=== PATIENT | male | born 1955 | race Caucasian/White ===

== ENCOUNTER 2020-03-10 00:17 | Outpatient (CLI) | payer OTHER, SELFPAY ==
[2020-03-10 18:35] LABS: SARS-CoV-2 RNA PCR Negative
== END 2020-03-10 00:18 | disposition home or self-care (01) ==
LOC: ANHCOVIDDT 00:17
PROVIDERS: PCP Family Medicine; Visit Provider Internal Medicine Gastroenterology
DX: Z01.812 Encounter for preprocedural laboratory examination (principal); Z20.828 Contact with and (suspected) exposure to other viral communicable diseases
CPT/HCPCS: 87635; C9803; U0003

== ENCOUNTER 2020-03-13 00:56 | Day surgery (SDC) | payer OTHER, SELFPAY ==
[2020-03-02 14:15] VITALS: BMI 29.1
--- NOTE | 2020-03-13 07:15 | WPDANESEPPF ---
Anes - Initial Pre Proc Eval Procedure: Operation Date: 03/13/20 13:30 Proposed Procedures p Screening Colonoscopy - Valdemar Welch MD Date/Time: 03/13/20 07:15 Surgeon: Valdemar Welch MD Pre Op Diagnosis: neoplasm screening Patient Data Age: 64 Gender: M Height: 1.83 m Weight: 97.5 kg Allergies Allergy/AdvReac Type Severity Reaction Status Date / Time No Known Allergies Allergy Unknown Verified 01/12/20 09:50 Home Medications Medication Instructions Recorded Confirmed Type peg 3350-electrolytes 236 240 ml PO Q10M #4000 ml 03/02/20 Rx gram-22.74 gram-6.74 gram-5.86 gram solution Patient hx anesthesia problems: none Family hx anesthesia problems: none [facility] Past Medical History Medical History (Updated 03/13/20 @ 07:16 by Jt Ribera MD) Erectile dysfunction Overweight (BMI 25.0-29.9) Social History Social History Smoking status: Never smoker Alcohol intake: current Anes - Eval Final PreProcedure Day of Procedure 03/13/20 07:15 Patient weight: overweight Heart: regular rate and rhythm Lungs: clear to auscultation and normal air movement Airway: Mallampati scale class II Neurological: alert and oriented Last oral intake: >/= 8 hours ASA classification: II Emergent: no Anesthetic plan: proceed Anesthesia type and monitoring: general GIVS Informed Consent: The patient's anesthetic plan and its attendant risks and benefits were discussed with the patient/family/POA. Questions were solicited and answers provided to the satisfaction of the patient/family/POA.
[2020-03-13] MEDS: LACTATED RINGERS 1,000 ML 150 ML IV CONT (12:34)
[2020-03-13 12:35] VITALS: BP 115/72; PULSE 83; RESP 16; O2SAT 98; BMI 28.2
--- NOTE | 2020-03-13 13:09 | PM.HPGS ---
History of Present Illness History of Present Illness Consent: Risks, benefits, and alternatives have been discussed and questions answered. Patient agrees to proceed with procedure. Chief complaint: neoplasm screening Narrative: Danielito Saravia is a 64 year old male here for screening colonoscopy, last one about 10 years ago. Review of Systems Constitutional: Constitutional: Denies headache(s) and Denies weakness Eyes: Eyes: Denies blurry vision ENT: Reports Normal hearing present, Denies headache(s) and Denies neck pain Cardiovascular: Cardiovascular: Denies chest pain and Denies dyspnea Respiratory: Respiratory: Denies dyspnea Gastrointestinal: Gastrointestinal: Reports no additional gastrointestinal complaints Genitourinary: Genitourinary: Denies dysuria Musculoskeletal: Musculoskeletal: Denies neck pain Integumentary/Breasts: Skin/Breast: Denies dry skin Neurologic: Reports Normal hearing present, Denies headache(s) and Denies weakness Psychiatric: Psychiatric: Denies anxiety Endocrine: Endocrine: Denies change in body appearance Hematologic/Lymphatic: Hematologic/Lymphatic: Denies easy bleeding Allergic/Immunologic: Allergic/Immunologic: Denies urticaria PMFSH Past Medical History Medical History (Updated 03/13/20 @ 13:09 by Valdemar Welch MD) Colon cancer screening Erectile dysfunction Overweight (BMI 25.0-29.9) Social History Social History Smoking status: Never smoker Alcohol intake: current Meds Home Medications and Allergies Home Medications Medication Instructions Recorded Confirmed Type ferrous sulfate [Iron (ferrous 325 mg PO DAILY 03/13/20 03/13/20 History sulfate)] Allergies Allergy/AdvReac Type Severity Reaction Status Date / Time No Known Allergies Allergy Unknown Verified 03/13/20 12:24 Vital Signs Vital Signs - 24 hr 03/13/20 12:35 Pulse Rate 83 Respiratory Rate 16 Blood Pressure 115/72 Pulse Oximetry 98 Exam Const: General: comfortable and no acute distress HENMT: General nose exam: Normal nares present Eyes: General: appearance normal, both eyes and all related structures Neck: Neck: no JVD Resp: Auscultation: clear to auscultation bilaterally Cardio: Rate: regular rate Rhythm: regular rhythm GI: Inspection: non-distended GI Palp: Yes Soft to palpation Skin: General skin exam: normal color Neuro: General: gait normal Speech: normal speech Extrem: General: normal to inspection Psych: Mental Status: mental status grossly normal Assessment and Plan Assessment and plan (1) Colon cancer screening: Code(s): Z12.11 - Encounter for screening for malignant neoplasm of colon Status: Acute Assessment and Plan: will proceed with colonoscopy
[2020-03-13 13:32] VITALS: BP 95/60; PULSE 75; RESP 16; O2SAT 100
[2020-03-13 13:42] VITALS: BP 97/63; PULSE 73; RESP 17; O2SAT 98
[2020-03-13 13:48] VITALS: BP 95/58; PULSE 65; O2SAT 96
== END 2020-03-13 14:10 | disposition home or self-care (01) ==
PROVIDERS: PCP Family Medicine; Visit Provider Internal Medicine Gastroenterology
PROC: 0DJD8ZZ Inspection of Lower Intestinal Tract, Via Natural or Artificial Opening Endoscopic (ICD-10-PCS; CPT 45378; principal; 2020-03-13 13:30)
DX: Z12.11 Encounter for screening for malignant neoplasm of colon (principal); K64.8 Other hemorrhoids
CPT/HCPCS: 45378; J2704; J7120

== ENCOUNTER → 2022-10-31 11:25 | Outpatient (CLI) | payer MEDICARE, OTHER, SELFPAY ==
--- NOTE | ~2022-10-31 | XR_ITS ---
XR knee LT 3V DATE: 10/31/2022 12:09 INDICATION: Left knee pain TECHNIQUE: AP, lateral, sunrise views COMPARISON: None FINDINGS: There is superior pole patellar enthesopathy. There is mild periarticular spurring of the p atella. There is chondrocalcinosis at the medial and lateral compartments. Medial and lateral compartment amarilis nt space appears well preserved. No fracture or dislocation or joint effusion, periosteal reaction or bone destruction is detected. IMPRESSION: Mild patellofemoral osteophyte is Chondrocalcinosis of medial and lateral compartments Reviewed, dictated and finalized at location A.
--- NOTE | ~2022-10-31 | XR_ITS ---
XR hip LT 2V w AP pelvis DATE: 10/31/2022 12:09 INDICATION: Left hip pain TECHNIQUE: AP pelvis. AP and lateral views of left hip COMPARISON: None FINDINGS: There is mild bilateral hip osteoarthritis. No left hip fracture or dislocation, avascular necrosis or bone destruction. Normal alignment at the pubic symphysis and sacroiliac joints. No pelvic fracture or bone destruction is detected. IMPRESSION: Mild bilateral hip osteoarthritis Reviewed, dictated and finalized at location A.
== END ==
PROVIDERS: PCP Family Medicine; Visit Provider Physician Assistant Medical
DX: M25.562 Pain in left knee (principal); M25.762 Osteophyte, left knee; M11.262 Other chondrocalcinosis, left knee; M16.0 Bilateral primary osteoarthritis of hip
CPT/HCPCS: 73502; 73562

== ENCOUNTER 2025-03-30 11:15 | Outpatient (CLI) | payer MEDICARE, OTHER, SELFPAY ==
[2025-03-30 11:38] LABS: Hematocrit 36.0 % (42.0-52.0); Hemoglobin 11.1 g/dL (14.0-18.0); Immature Granulocyte Percent A 0.5 % (0-0.5); Immature Reticulocyte Fraction 20.3 % (3.0-15.9); Lymphocytes Absolute Auto 1.08 K/mm3 (0.9-3.2); Mean Corpuscular HGB Conc 30.8 g/dl (32-36); Mean Corpuscular Hemoglobin 27.8 pg (26-34); Mean Corpuscular Volume 90.0 fl (80-100); Nucleated Red Blood Cells Absolute Auto 0.000 K/mm3 (0.0-0.012); Nucleated Red Blood Cells Perc 0.0 % (0.0-0.2); Platelet Count Result 302 k/mm3 (150-375); Red Blood Count 4.00 M/mm3 (4.6-6.20); Reticulocyte Hemoglobin Conten 30.8 pg (28.2-36.6); Reticulocytes Absolute 0.06 10^6/uL (0.02-0.10); White Blood Count 7.7 K/mm3 (4.5-10.0)
[2025-03-30 13:58] LABS: Iron 36 ug/dL (49-181)
[2025-03-30 14:07] LABS: Percent Iron Saturation 15 % (20-50)
[2025-03-30 14:38] LABS: Thyroid Stimulating Hormone 2.030 uIU/mL (0.465-4.680)
[2025-03-30 14:40] LABS: Ferritin 83.50 ng/mL (11.1-264)
[2025-03-30 15:14] LABS: Vitamin B12 284.0 pg/mL (239-931)
[2025-03-31 14:08] LABS: ANA by IFA Rfx Titer/Pattern Negative (.)
[2025-03-31 16:08] LABS: Albumin 3.0 g/dL (2.9-4.4); Alpha-1-Globulin 0.4 g/dL (0.0-0.4); Alpha-2-Globulin 1.0 g/dL (0.4-1.0); Gamma Globulin 2.1 g/dL (0.4-1.8)
[2025-04-07 03:08] LABS: Free Testosterone (Direct) 4.1 pg/mL (6.6-18.1)
== END 2025-03-30 11:16 | disposition home or self-care (01) ==
LOC: ANHLAB 11:17
PROVIDERS: PCP Family Medicine; Visit Provider Internal Medicine Hematology & Oncology
DX: D64.9 Anemia, unspecified (principal)
CPT/HCPCS: 36415; 82607; 82728; 82746; 83540; 83550; 83615; 84155; 84165; 84402; 84403; 84443; 85025; 85046; 86038

== ENCOUNTER 2025-05-18 10:09 | Outpatient (CLI) | payer MEDICARE, OTHER, SELFPAY ==
[2025-05-18 10:28] LABS: Hematocrit 37.8 % (42.0-52.0); Hemoglobin 11.4 g/dL (14.0-18.0); Immature Granulocyte Percent A 0.4 % (0-0.5); Lymphocytes Absolute Auto 1.31 K/mm3 (0.9-3.2); Mean Corpuscular HGB Conc 30.2 g/dl (32-36); Mean Corpuscular Hemoglobin 27.2 pg (26-34); Mean Corpuscular Volume 90.2 fl (80-100); Nucleated Red Blood Cells Absolute Auto 0.000 K/mm3 (0.0-0.012); Nucleated Red Blood Cells Perc 0.0 % (0.0-0.2); Platelet Count Result 349 k/mm3 (150-375); Red Blood Count 4.19 M/mm3 (4.6-6.20); White Blood Count 8.3 K/mm3 (4.5-10.0)
[2025-05-18 11:49] LABS: Iron 36 ug/dL (49-181)
[2025-05-18 11:50] LABS: Alanine Aminotransferase 15 U/L (6-50); Albumin Level 4.0 g/dL (3.5-5.1); Alkaline Phosphatase 87 U/L (38-126); Anion Gap 8 mmol/L (4-12); Aspartate Amino Transferase 17 U/L (17-59); Bilirubin,Total 0.6 mg/dL (0.2-1.3); Blood Urea Nitrogen 21 mg/dL (9-20); Calcium 9.9 mg/dL (8.4-10.2); Carbon Dioxide 29 mmol/L (22-30); Chloride 104 mmol/L (98-107); Estimated Glomerular Filt Rate > 60; Glucose 144 mg/dL (65-110); Potassium 3.8 mmol/L (3.4-5.0); Sodium 141 mmol/L (137-145); Total Protein 8.6 g/dL (6.3-8.2)
[2025-05-18 12:07] LABS: Percent Iron Saturation 15 % (20-50)
--- OUTSIDE RECORDS SUMMARY | 2025-05-18 12:16 | XMS_ITS | Clinical Summary ---
Author Organization [facility] Address [address] [place] [address] Care Team Providers Care Digital Advisor Name Role Phone Dung Duggan MD Primary Care Provider [phone] Allergies No known active allergies Medications rosuvastatin (CRESTOR) 5 MG tablet 08/03/2024 Active Iron, Ferrous Sulfate, 325 (65 Fe) MG Tab 06/10/2024 Acti ve IBU 600 MG tablet 09/20/2024 Active omeprazole (PRILOSEC) 40 MG capsule Take 1 capsule (40 mg total) by mouth. 01/07/2024 Active Apoaequorin (PREVAGEN EXTRA STRENGTH) 20 MG Cap Take 1 capsule by mouth daily. Active Active Problems Problem Noted Date Diagnosed Date Benign prostatic hyperplasia with urinary obstru ction 11/08/2024 Benign prostatic hyperplasia 11/08/2024 Benign prostatic hyperplasia with lower urinary tract symptoms 11/08/2024 Elevated prostate specific antigen (PSA) 025 Exposure to potentially hazardous substance 10/26 Gastro-esophageal reflux dis ease with esophagitis, without bleeding 11/08/2024 Gastroesophageal reflux disease 11/08/2024 History of esophagitis 11/08/2024 Nocturia 11/08/2024 Syncope 09/28/2024 Coronary atherosclerosis due to calcified coronary lesion (CODE) 05/21/2024 Abnormal wellness exam 05/04/2024 Dizziness and giddiness 05/04/2024 Iron deficiency anemia 05/04/2024 Prediabetes 05/04/2024 History of squamous cell carcinoma of skin 04/11 Syncope and collapse Resolved Problems Problem Noted Date Diagnosed Date Resolved Date Encounter for other preprocedural examination 11/09/19 25 11/15/2024 Immunizations Immunization Administration Dates Next Due Arexvy Respiratory Syncytial Virus (RSV, adjuvanted) 0.5 mL, PF 04/01/2023 Flucelvax 6 Months+ (Prefill ed Syringe) 05/16/2020 Fluzone High Dose (IIV, triv alent, 0.5mL) 03/30/2024 H1N1 Injectable 2008 Influenza 08/20/2009 Hepatitis A (Havrix [address]U) 06/30/1999,1997 Hepatitis B (Generic: Adult) 07/02/2014,01/14/20 14,12/11/2013 Influenza (Generic) 04/21/2022,,05/01/2019,04/21,06/12/2013,05/17/2012,04/13/2011 ,05/12/2010,08/20/2009,05/14/2009,04/28,05/20/2007,07/11/2006, 5,05/28/2003,05/29/2002,05/30/2001,,07/01/1998 Influenza Adult (Generic) 05/21/2014 Toppr (AGUSTÍN & AGUSTÍN) COVID-19 AD26 VACCINE 0.5 ML IM SUSP 09/29/2020 MMR (MMRII) 09/26/2002 Measles 06/11/2020 Meningococcal (Menomune) 12/15/1999 PFIZER COVID-19 (12+) MRNA, LNP-S, PF, RONAL-SUCROSE, 30 MCG/0.3 ML (COMIRNATY) 04/29/2023 PFIZER COVID-19 (HOLT CAP), MRNA, LNP-S, PF, 30 MCG/0.3 ML RONAL-SUCROSE, IM 05/24/2021 PFIZER COVID-19 BIVALENT (12 +) mRNA, LNP-S, PF, 30 MCG/0.3 ML DOSE 06/05/2022 Pneumococcal (Prevnar 20) 06/05/2022 Polio Opv (Generic) 08/28/1989 Shingrix 08/10/2022, 2,08/08/2021,05/11 Td (TDVAX) 09/26/2002,02/22/1993 Tdap (Generic) 08/02/2012 Typhoid 10/01/2003 Typhoid (Typhim ) 10/03/2001 Typhoid Vaccine, Akd 08/28/1996 Typhoid Vi Polysaccharide Va cc 25 Mcg/0.5Ml Im Soln 10/01/2003,12/15/1999 Yellow Fever (YF- Vax) 12/26/1997 Family History Medical History Relation Comments Heart Disease Father No Known Problems Maternal Grandfather No Known Problems Maternal Grandmother Heart Attack Mother Heart Disease Mother No Known Problems Paternal Grandfather No Known Problems Paternal Grandmother Relation Status Comments Father Maternal Grandfather Maternal Grandmother Mother Paternal Grandfather Paternal Grandmother Social History Tobacco Use Types Packs/Day Years Used Date Smoking Tobacco: Never Passive Smoke Exposure: Never Smokeless Tobacco: Never Tobacco Cessation:Counseling Given: Not Answered Alcohol Use Standard Drinks/Week Comments Yes 0 (1 standard drink = 0.6 oz pur e alcohol) AUDIT-C Answer Date Recorded Q1: How often do you have a drink containing alc ohol? Monthly or less 10/11/2020 Q2: How many drinks containi ng alcohol do you have on a typical day when you are drinking? 1 or 2 10/11/2020 Q3: How often do you have si x or more drinks on one occasion? Never 10/11/2020 PHQ-2 Answer Date Recorded PHQ-2 Score - If the patient scores above 3, please move on to questions 3-9 0 10/11/2020 Sex and Gender Information Value Date Recorded Sex Assigned at Male 10/11/2020 3:24 PM CDT Legal Sex Male 12:44 PM PRESCHOOL PROGRAM DIRECTOR Gender Identity Male 10/11/2020 3:24 PM CDT Sexual Orientation Straight 10/11/2020 3: 24 PM CDT Last Filed Vital Signs Vital Sign Reading Time Taken Comments Blood Pressure 134/82 11/08/2024 2:10 PM CDT Pulse 82 11/08/2024 2:10 PM CDT Temperature 36.6 C (97.8 F) 09/23/2024 9:15 AM PRESCHOOL PROGRAM DIRECTOR Respiratory Rate 12 09/23/2024 9:15 AM PRESCHOOL PROGRAM DIRECTOR Oxygen Saturation 96% 11/08/2024 2:10 PM CDT Inhaled Oxygen Concentration - - Weight 95.7 kg (211 lb) 11/08/2024 2:10 PM CDT Height 181.6 cm (5' 11.5) 11/08/2024 2:10 PM CD T Body Mass Index 29.02 11/08/2024 2:10 PM CDT Plan of Treatment Upcoming Encounters Date Type Department Care Team (Late st Contact Info) Description 05/23/2025 9:30 AM CDT Office Visit [facility] [facility] [place] [address] Beto Wright MD [address] [facility] [address] [place] [address] Beverly Watts, CHAIR SPRING ASSEMBLER [address] [facility] [place] [address] Health Maintenance Due Date Last Done Comments ASCVD LDL 1955 Colorectal Cancer Screening Colonoscopy (10 Years) 1955 Hepatitis C 10/22/1973 Annual Medicare Wellness Visit 10/22/2020 DTaP, Tdap and Td Vaccines (2 - Td or Tdap) 08/02/2022 08/02/2012, 09/26/2002, 02/22/1993 COVID-19 Vaccine ( - season) 2025 04/29/2023, 06/05/2022, 05/24/2021, Additional history exists Influenza Adult (#1) 2025 03/30/2024, 04/21/2022, 03/28/2022, Additional history exists Hepatitis A Vaccines Aged Out 06/30/1999, 02/11/19 98 No longer eligible based on patient's age to complete this topic Meningococcal Vaccine Aged Out 12/15/1999 No sarbjit thor eligible based on patient's age to complete this topic Pneumococcal Vaccine: 50+ Years Completed 06/05/2022 Zoster Vaccines Completed 08/10/2022, 110 03/2022, 08/08/2021, Additional history exists RSV Immunization or 60+ Years Completed 04/01/2023 Meningococcal B Vaccine Aged Out No l onger eligible based on patient's age to complete this topic RSV Immunizations Under 20 Months Aged Out No longer eligible based on patient's age to complete this topic Insurance [facility] UHC MEDICARE Care Teams Digital Advisor Relationship Specialty Start Date End Date Dung Duggan MD [address] [place], [place] [id number] PCP - General FAMILY PRACTICE 12/02/24
--- OUTSIDE RECORDS SUMMARY | 2025-05-18 12:16 | XMS_ITS | Clinical Summary ---
Author Organization [facility] Address [address] [place] [address] Care Team Providers Care Scrap Hooker Name Role Phone Dung Duggan MD Primary Care Provider [phone] Source Comments [facility],non-owned Affiliates and Associated Physician Practices is amultiple site organization consisting of ambulatory clinics and hospital sitesin [place], [place], [place] and [place]. This disclosure is being madepursuant to the Care Everywhere program and may not contain all information available regarding this patient. Last updated 18.[facility] Allergies No known active allergies Medications * Be aware that medications may not be up to date on this document. Alwaysverify current medications with the patient. tamsulosin (FLOMAX) 0.4 MG capsule Take 1 (one) capsule by mouth once daily 12/11/2020 Active tadalafil (Cialis) 5 MG tablet Take 1 (one) tablet by mouth once daily 01/18/2023 Active finasteride (Proscar) 5 MG tablet 05/12/2023 Active ferrous sulfate 325 (65 FE) MG tablet 04/07/2023 Active rosuvastatin (Crestor) 5 MG tablet Take 1 (one) tablet by mouth at bedtime 05/21/2024 Active omeprazole (PriLOSEC) 40 MG capsule Take 1 (one) capsule by mouth every 2 days 01/07/2024 Active Active Problems Problem Noted Date Diagnosed Date Multiple benign melanocytic nevi of upper and lower extremities and trunk 07/02/2022 Solar lentiginosis 07/02/2022 Other specified follicular disorders 07/15/2017 Neoplasm of uncertain behavior of skin 2 Inflamed seborrheic keratosis 04/11/2011 Scar conditions and fibrosis of skin 04/11/2011 History of SCC (squamous cell carcinoma) of skin 04/11/2011 Actinic keratosis 04/11/2011 Nevus, non-neoplastic 04/11/2011 Ritchie angioma 04/11/2011 Scar 04/11/2011 Encounters Date Type Department Care Team Description 02/22/2025 Travel from Last 3 Months Immunizations Immunization Administration Dates Next Due INFLUENZA VACCINE, TRIV. (AF LURIA, FLUZONE TRIVALENT; 6MO+) (IIV3) 06/12/2013,05/17/2012 FLU VACCINE QUAD IIV4 SPLIT 0.25 ML IM 05/21/2014 FLU VACCINE TRI IIV3 SPLIT P F IM (FLUVIRIN) 04/13/2011 HEP B VACCINE, ADULT 3 DOSE 07/02/2014, 4,12/11/2013 INFLUENZA VACCINE 04/21/2022, 9,04/21/2018,2009,08/20/2009,05/18/2008,05/20/2007,1 09/11/2005,06/02/2005,05/28/2003 INFLUENZA VACCINE, CELL CULT URE, QUADR. (FLUCELVAX QUADRIVALENT; 6MO+) (CCIIV4) 05/16/2020 MEASLES 06/11/2020 TDAP (7yrs+) 08/02/2012 TYPHOID VACCINE H-P 10/01/2003 Family History Medical History Relation Name Comments Allergy (Severe) Neg Hx CVA Neg Hx Cancer Neg Hx Cancer - Breast Neg Hx Cancer - Skin, Melanoma Neg Hx Cancer - Skin, Non Melanoma Neg Hx Eczema Neg Hx Hemophilia Neg Hx Psoriasis Neg Hx Rashes/Skin Problems Neg Hx Social History Tobacco Use Types Packs/Day Years Used Date Smoking Tobacco: Never Smokeless Tobacco: Never Tobacco Cessation:Counseling Given: Not Answered Alcohol Use Standard Drinks/Week Comments No 0 (1 standard drink = 0.6 oz pur e alcohol) Sex and Gender Information Value Date Recorded Sex Assigned at Not on file Legal Sex 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 Gender Identity Not on file Sexual Orientation Not on file Plan of Treatment Upcoming Encounters Date Type Department Care Team (Late st Contact Info) Description 10/04/2025 1:20 PM CDT Office Visit [facility] [address] [facility] [facility] [place] [phone] Dianne Faye MD [address] [facility] [place] [address] Health Maintenance Due Date Last Done Comments COLOGUARD (AGES 45-75) - COLON CA SCREENING 1955 COLON MONITORING 1955 COLONOSCOPY - COLON CA SCREENING 1955 CT COLONOGRAPHY - COLON CA SCREENING 1955 Colorectal Cancer Screening 1955 FIT - COLON CA SCREENING 1955 FLEX SIG - COLON CA SCREENING 1955 HEPATITIS C SCREENING 10/18/1973 PNEUMOCOCCAL VACCINE 50+ (1 of 1 - PCV) 10/22/2005 ZOSTER VACCINE (1 of 2) 10/22/2005 DTAP/TDAP/TD VACCINES (2 - Td or Tdap) 08/02/2022 08/02/2012 DEPRESSION SCREENING 07/28/2024 MEDICARE AWV CALENDAR YEAR 2024 COVID-19 VACCINE ( - 2024- season) 2025 06/05/2022, 05/24/2021, 09/29/2020 INFLUENZA VACCINE (#1) 2025 , 04/21/2022, 03/28/2022, Additional history exists Respiratory Syncytial Virus (RSV) Vaccine Pt: or over 60 yrs (1 - 1-dose 75+ series) 10/22/2030 HEPATITIS B VACCINE Completed 07/02/2014, 01/13/2014, 12/11/2013 HIB VACCINE Aged Out No longer eligi ble based on patient's age to complete this topic HPV VACCINE Aged Out No longer eligi ble based on patient's age to complete this topic MENINGOCOCCAL (Group B) VACCINE SHARED DECISION-MAKING Aged Out No longer eligible based on patient's age to complete this topic MENINGOCOCCAL GROUPS A/C/Y/W VACCINE Aged Out No longer eligible based on patient's age to complete this topic Insurance MEDICARE UHC MANAGED MEDICARE ADV Care Teams Scrap Hooker Relationship Specialty Start Date End Date Dung Duggan MD [address] [place] [address] PCP - General 04/02/11
--- OUTSIDE RECORDS SUMMARY | 2025-05-18 12:16 | XMS_ITS | Clinical Summary ---
Author Organization [facility] Address [address] [place] [address] Care Team Providers Care Supervisor Engine Repair Name Role Phone Dung Duggan MD Primary Care Provider Allergies No known active allergies Medications ferrous sulfate 325 mg (65 mg iron) tablet Take 325 mg by mouth daily. 06/10/2024 Active omeprazole (PriLOSEC) 40 mg Capsule, Delayed Release(E.C.) Take 40 mg by mouth daily. 01/07/2024 Active rosuvastatin (CRESTOR) 5 mg tablet Take 5 mg by mouth daily. 08/03/2024 Active tadalafil (CIALIS) 5 mg tablet Take 5 mg by mouth. 02/16/2025 Active Active Problems Problem Noted Date Diagnosed Date Chronic anemia 03/30/2025 Encounters Date Type Department Care Team Description 05/13/2025 Abstract [facility] [address] [place] [phone] Bolivar Sánchez MD 04/19/2025 4:30 PM CDT Telephone Check Up [facility] [place] [address] [place] [phone] Bolivar Sánchez MD MGUS (monoclonal gammopathy of unknown significance) (Primary Dx); Chronic anemia 04/07/2025 Orders Only [facility] [place] [address] [place] [address] Bolivar Sánchez MD 04/05/2025 External Device Data STL ABSTRACTION Provider, Abstract 04/05/2025 External Device Data STL ABSTRACTION Provider, Abstract 04/05/2025 External Device Data STL ABSTRACTION Provider, Abstract 04/05/2025 Abstract [facility] [place] [address] [place] [phone] Bolivar Sánchez MD 04/01/2025 Orders Only [facility] - [place] [address] [place] [phone] Bolivar Sánchez MD 03/30/2025 10:30 AM CDT Office Visit [facility] - [place] [address] [place] [phone] Migdalia Garvin MD Chronic anemia (Primary Dx) 03/30/2025 Orders Only [facility] - [place] [address] [place] [phone] Bolivar Sánchez MD from Last 3 Months Family History Medical History Relation Name Comments Colon Cancer Brother 1 Prostate Cancer Brother 1 No Known Problems Brother 2 Heart Disease Father Heart Disease Mother Breast Cancer Sister Lymphoma Sister Relation Name Status Comments Brother 1 Brother 2 Alive Father Mother Sister Alive Social History Tobacco Use Types Packs/Day Years Used Date Smoking Tobacco: Never Smokeless Tobacco: Never Tobacco Cessation:Counseling Given: Not Answered Alcohol Use Standard Drinks/Week Comments Yes 0 (1 standard drink = 0.6 oz pur e alcohol) Occasionally Sex and Gender Information Value Date Recorded Sex Assigned at Not on file Legal Sex Male 10:13 PM CDT Gender Identity Not on file Sexual Orientation Not on file Last Filed Vital Signs Vital Sign Reading Time Taken Comments Blood Pressure 120/67 03/30/2025 10:19 AM CDT Pulse 83 03/30/2025 10:19 AM CDT Temperature 36.2 C (97.2 F) 03/30/2025 10:19 AM CDT Respiratory Rate 15 03/30/2025 10:19 AM CDT Oxygen Saturation 99% 03/30/2025 10:19 AM CDT Inhaled Oxygen Concentration - - Weight 94.4 kg (208 lb 3.2 oz) 03/30/2025 10:19 AM CDT Height 182.9 cm (6') 03/30/2025 10:19 AM CDT Body Mass Index 28.24 03/30/2025 10:19 AM CDT Plan of Treatment Upcoming Encounters Date Type Department Care Team (Late st Contact Info) Description 06/03/2025 10:45 AM PATCHER Office Visit [facility] - [place] [address] [facility] [address] [place] [address] Bolivar Sánchez MD [address] [facility] [address] [place] [address] Health Maintenance Due Date Last Done Comments Pre-Diabetes and Diabetes Screening 1955 COLORECTAL SCREENING 10/22/2000 Colorectal Cancer Screening 10/22/2000 FIT-DNA Q 3 years 10/22/2000 FIT/FOBT Q 1 year 10/22/2000 Flex Sig/CT Colonography Q 5 years 10/22/2000 DTAP/TDAP/TD VACCINES (2 - T d or Tdap) 08/02/2022 08/02/2012 Medicare Advantage ([place]) Preventative Visit/Annual Wellness Visit 07/28/2024 INFLUENZA VACCINE (#1) 2025 4, 04/01/2023, 05/16/2020, Additional history exists COVID-19 Vaccine (5 - 2024-2 6 season) 2025 04/29/2023, 06/05/2022, 05/24/2021, Additional history exists RSV VACCINE (60+ or ) (1 - 1-dose 75+ series) 10/22/2030 PNEUMOCOCCAL VACCINE 50+ YEARS Completed 06/05/2022 ZOSTER VACCINE Completed 08/10/2022, 1103/2022, 08/08/2021, Additional history exists Procedures Procedure Name Priority Date/Time Associated Diagnosis Comments IRON, TIBC, AND PERCENT SATURATION Routine 03/30/2025 3:50 PM CDT PROTEIN ELECTROPHORESIS, CSF Routine 03/30/2025 12:20 PM CDT HANNA PANEL Routine 03/30/2025 10:35 AM CDT TESTOSTERONE FREE AND TOTAL Routine 03/30/2025 8:56 AM CDT from Last 3 Months Results * IRON, TIBC, AND PERCENT SATURATION (03/30/2025 3:50 PM CDT) Blood us Bolivar Sánchez MD CHEMISTRY ORDERABLES Final Resu lt * PROTEIN ELECTROPHORESIS, CSF (03/30/2025 12:20 PM CDT) Cerebrospinal fluid CEREBROSPINAL FLUID / Unknown us Bolivar Sánchez MD BODY FLUIDS AND STOOLS Final Re sult * HANNA PANEL (03/30/2025 10:35 AM CDT) Blood us Bolivar Sánchez MD CHEMISTRY ORDERABLES Final Resu lt * TESTOSTERONE FREE AND TOTAL (03/30/2025 8:56 AM CDT) Blood us Bolivar Sánchez MD CHEMISTRY ORDERABLES Final Resu lt from Last 3 Months Insurance [employer] Care Teams Supervisor Engine Repair Relationship Specialty Start Date End Date Dung Duggan MD [address] [place] [address] PCP - General Family Practice 03/30/25
[2025-05-18 12:24] LABS: Immunoglobulin A 46 mg/dL (70-400); Immunoglobulin G 1028 mg/dL (700-1600)
[2025-05-18 12:30] LABS: Ferritin 89.20 ng/mL (11.1-264)
[2025-05-18 12:45] LABS: Vitamin B12 826.0 pg/mL (239-931)
[2025-05-18 17:22] LABS: Immunoglobulin M 1996 mg/dL (40-230)
[2025-05-19 14:08] LABS: Albumin 3.1 g/dL (2.9-4.4); Alpha-1-Globulin 0.4 g/dL (0.0-0.4); Alpha-2-Globulin 1.1 g/dL (0.4-1.0); Gamma Globulin 2.4 g/dL (0.4-1.8)
[2025-05-19 14:08] LABS: Free Lambda Lt Chains, Serum 42.3 mg/L (5.7-26.3); Kappa/Lambda Ratio, Serum 4.45 (0.26-1.65)
== END 2025-05-18 10:10 | disposition home or self-care (01) ==
LOC: ANHLAB 10:12
PROVIDERS: PCP Family Medicine; Visit Provider Internal Medicine Hematology & Oncology
DX: D64.9 Anemia, unspecified (principal); D47.2 Monoclonal gammopathy
CPT/HCPCS: 36415; 80053; 82607; 82728; 82784; 83521; 83540; 83550; 84155; 84165; 85025

== ENCOUNTER 2025-05-18 10:34 | Outpatient (CLI) | payer MEDICARE, OTHER, SELFPAY ==
--- NOTE | ~2025-05-18 | XR_ITS ---
EXAMINATION: BONE SURVEY/METASTATIC SURVEY DATE: 05/19/2025 10:38 CDT INDICATION: Monoclonal gammopathy of unknown significance TECHNIQUE: A skeletal survey was performed including AP views of the chest, abdomen and pelvis; AP and lateral/lateral swimmers views of the cervical, thoracic and lumbar spine; lateral view of the skull, and AP and lateral views of the appendicular skeleton excluding the hands and feet. COMPARISON: Chest radiograph dated 06/15/2018 FINDINGS: No suspicious lytic or blastic bone lesions in the axial or appendicular skeleton. Chondrocalcinosis at the bilateral knees. Moderate osteoarthritis at the bilateral shoulders. Otherwise mild scattered polyarticular osteoarthritis in the upper and lower extremities. Mild thoracic dextrocurvature. Moderate to severe cervical and mild thoracic and lumbar spondylosis. Unchanged chronic mild likely physiologic anterior wedging at T11 and T12. 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 Lungs are clear with no focal airspace opacities, pulmonary edema, pleural effusion or pneumothorax. Cardiomediastinal silhouette is normal. Normal bowel gas pattern. A few phleboliths in the pelvis. IMPRESSION: 1. Scattered degenerative skeletal changes and L5 spondylolysis. No suspicious lytic or blastic bone lesions. Reviewed, dictated and finalized at location A.
== END 2025-05-18 10:35 | disposition home or self-care (01) ==
PROVIDERS: PCP Family Medicine; Visit Provider Internal Medicine Hematology & Oncology
DX: D47.2 Monoclonal gammopathy (principal); M43.06 Spondylolysis, lumbar region
CPT/HCPCS: 77075

== ENCOUNTER 2025-06-03 11:32 | Outpatient (CLI) | payer MEDICARE, OTHER, SELFPAY ==
--- NOTE | ~2025-06-03 | CT_ITS ---
EXAMINATION: CT chest abdomen pelvis w con DATE: 06/03/2025 12:12 INDICATION: MGUS TECHNIQUE: Computed tomography (CT) of the chest, abdomen, and pelvis was performed with 100 mL Omnipaque-350 intravenous contrast. Automated exposure control and iterative reconstruction technique were employed. The dose-length product was 1086.27 mGy-cm. COMPARISON: None FINDINGS: CHEST CT: There are old healed fracture deformities at the anterolateral left fourth- seventh ribs. 3.1 x 1.7 cm triangular pleural-based nodule immediately adjacent to the seventh rib fracture which has healed with mild displacement likely related to secondary pleural-parenchymal scarring. Small calcified nodule within this region of scarring which along with left hilar lymph nodes consistent with old granulomatous disease. No pneumonia, trauma or other pulmonary infiltrates. No pleural effusion. Heart size is normal. Atherosclerotic coronary artery calcifications. No pericardial effusion. Thoracic aorta is normal in caliber with no dissection. No pathologically enlarged thoracic lymphadenopathy. Mild thoracic dextro scoliosis with mild spondylosis. No suspicious lytic or blastic bone lesions. ABDOMEN/PELVIS CT: Liver, gallbladder, spleen, pancreas, bilateral adrenal glands and kidneys are normal. Bladder is normal. Prostatomegaly measuring 5.3 x 4.2 cm. Bowels including the appendix are normal. There is upper and lower abdominal retroperitoneal lymphadenopathy. For reference, the largest is a 4.1 x 2.6 x 1.6 cm left para-aortic lymph node. There are also a mildly prominent but still normal-sized right periportal lymph node measuring 9-10 mm in maximal short axis diameter and portacaval lymph node measuring 11 mm in maximal short axis diameter. 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 Mild chronic appearing likely physiologic anterior wedging at T11 and T12. Mild bilateral sacroiliitis. Elongated sclerotic bone island at the right posterior iliac spine. No suspicious lytic or blastic bone lesions. IMPRESSION: 1. No suspicious lytic or blastic bone lesions. 2. Retroperitoneal lymphadenopathy which could be reactive, metastatic or due to lymphoma. Correlate with any prior outside imaging if available. Alternatively could consider percutaneous CT-guided biopsy as clinically indicated. 3. 3.1 x 1.7 cm perihilar pleural-based nodule at the lateral and lingula which lies medially along side a old healed rib fracture and would favor secondary pleural parenchymal scarring. Would again recommend correlation with any prior outside imaging if available. Otherwise would consider 3-6 month follow-up chest CT. 4. Prostatomegaly. Reviewed, dictated and finalized at location A. [facility] IMPRESSION: 1. No suspicious lytic or blastic bone lesions. 2. Retroperitoneal lymphadenopathy which could be reactive, metastatic or due t o lymphoma. Correlate with any prior outside imaging if available. Alternativel y could consider percutaneous CT-guided biopsy as clinically indicated. 3. 3.1 x 1.7 cm perihilar pleural-based nodule at the lateral and lingula which lies medially along side a old healed rib fracture and would favor secondary p leural parenchymal scarring. Would again recommend correlation with any prior o utside imaging if available. Otherwise would consider 3-6 month follow-up chest CT. 4. Prostatomegaly.
--- OUTSIDE RECORDS SUMMARY | 2025-06-03 11:00 | XMS_ITS | Encounter Summary ---
Author Organization [facility] OSEI [facility] Address [address] [place] [address] Care Team Providers Care Calender Operator Helper Name Role Phone Dung Duggan MD Primary Care Provider [phone] Reason for Referral * CT Scan (Urgent) - Open Specialty Diagnoses / Procedures Referred By Contac t Referred To Contact Diagnoses MGUS (monoclonal gammopathy of unknown significance) Procedures CT CHEST ABDOMEN PELVIS W CONT Bolivar Sánchez MD [address] [place] [phone] Phone: tel: fax: [place] [phone] Referral ID Status Reason Start Date Expiration Date V isits Requested Visits Authorized [id number] Open STL CTS 06/03/2025 07/04/2026 1 1 DIPPER Reason for Visit * Reason Comments Follow Up Encounter Details Date Type Department Care Team (Late st Contact Info) Description 06/03/2025 11:00 AM LAST DIPPER Office Visit [facility] Oncology and Hematology [facility] [address] [place] [address] Bolivar Sánchez MD [address] [place] [address] MGUS (monoclonal gammopathy of unknown significance) (Primary Dx) Social History Tobacco Use Types Packs/Day Years [...] on file Sexual Orientation Not on file documented as of this encounter Last Filed Vital Signs Vital Sign Reading Time Taken Comments Blood Pressure 121/73 06/03/2025 10:33 AM LAST DIPPER Pulse 88 06/03/2025 10:33 AM LAST DIPPER Temperature 36.6 C (97.8 F) 06/03/2025 10:33 AM LAST DIPPER Respiratory Rate 15 06/03/2025 10:3 3 AM LAST DIPPER Oxygen Saturation 95% 06/03/2025 10: 33 AM LAST DIPPER Inhaled Oxygen Concentration - - Weight 93.8 kg (206 lb 12.8 oz) 025 10:33 AM LAST DIPPER Height - - Body Mass Index 28.05 03/30/2025 10:19 AM CDT documented in this encounter Progress Notes * Bolivar Sánchez MD - 06/03/2025 11:17 AM CST HEMATOLOGY / ONCOLOGY PROGRESS NOTE Patient Identification: Name: Danielito Saravia Age: 69 y.o. Sex: male : 1955 DIAGNOSIS Chronic anemia MGUS CURRENT TREATMENT Iron 325 mg twice a day with vitamin B12 1 mg daily TREATMENT HISTORY SUBJECTIVE Patient came to the office for follow-up visit. He denies any bone pain and neuropathy. Denies any chest pain and shortness of breath. Weight and appetite stable. No bleeding and bruising. No other new complaints. Review of system Constitutional: Patient did not mention fevers, sweats, weight and appetite stable, denies any tiredness and fatigue HEENT: Patient did not mention sinus congestion, hearing or vision problems Respiratory: Patient did not mention cough, dyspnea, wheeze Cardiovascular: Patient did not mention chest pain, exertional chest pressure/discomfort, nausea, syncope, shortness of breath GI: Patient did not mention constipation, diarrhea, dsyphagia, reflux symptoms, vomiting, melena : Patient did not mention dysuria, frequency, incontinence, urgency Integumentary system: no lymphadenopathy, sweats, flushing Musculoskeletal: Patient not mention: myalgia, arthralgia Neurological: Patient did not mention blurry or disturbed vision, numbness/weakness, dizziness Skin: No lumps, bumps or rashes. 12 point review of system was reviewed Objective: Vital signs in last 24 hours: As per nursing note Exam: Lungs are clear to auscultation bilaterally Cardiovascular regular rate rhythm no murmurs Abdomen soft nontender nondistended bowel sounds are positive Extremities no edema There no lymphadenopathy PATH LABS Labs from March 30 showed iron 36 saturation 15 ferritin 83 B12 284 M spike 1.2 g free testosterone 4.1 hemoglobin 11.1 Labs from May 18 showed creatinine 0.9 calcium 9.9 B12 826 iron 36 saturation 15 ferritin 89 hemoglobin 11.4 IgM 1995 M spike 1.5 g [place] light chain 188 lambda 42 ratio 4.4 Assessment: Plan: Patient Active Problem List Diagnosis Date Noted Chronic anemia 03/30/2025 MGUS. Myeloma testing showed elevated M spike of 1.5 g with elevated IgM level. Skeletal survey done on May 18, 2025 showed no evidence of lytic bone lesion. Due to IgM MGUS I will order bone marrow aspiration and biopsy and CT scan chest abdomen pelvis to check for any underlying lymphoma. Follow-up in 3 weeks. Chronic anemia. Iron studies reviewed. B12 is normal. Patient will continue iron twice a day with B12 1 mg daily. I will repeat labs in 3 months. Patient had EGD and colonoscopy done in [facility] that showed peptic ulcer disease and was started on omeprazole. Follow-up in 3 weeks 06/03/2025 Bolivar Sánchez MD DIPPER documented in this encounter Plan of Treatment Upcoming Encounters Date Type Department Care Team (Late st Contact Info) Description 06/28/2025 11:30 AM LAST DIPPER Office Visit [facility] Oncology and Hematology - [place] [address] [place] [address] Bolivar Sánchez MD [address] [facility] [address] [place] [address] Scheduled Orders Name Type Priority Associated Diagnoses Orde r Schedule BONE MARROW ASPIRATION & BIOPSY Procedures Routine MGUS (monoclonal gammopathy of unknown significance) Expected: 06/10/2025, Expires: 07/03/2025 CT CHEST ABDOMEN PELVIS W CONT Imaging Stat MGUS (monoclonal gammopathy of unknown significance) Expected: 06/10/2025, Expires: 06/03/2026 documented as of this encounter Visit Diagnoses Diagnosis 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 [address] PCP - General Family Practice 03/30/25 documented as of this encounter
--- OUTSIDE RECORDS SUMMARY | 2025-06-03 12:11 | XMS_ITS | Clinical Summary ---
Author Organization [facility] Adryan eddy Lamar Address [address] [place] [address] Care Team Providers Care Director Communications Name Role Phone Dung Duggan MD Primary Care Provider [phone] Allergies No known active allergies Medications ferrous [...] Encounters Date Type Department Care Team Description 06/03/2025 11:00 AM COURTROOM CLERK Office Visit [facility] Oncology and Hematology - [place] [address] [place] [address] Bolivar Sánchez MD MGUS (monoclonal gammopathy of unknown significance) (Primary Dx) 05/19/2025 Orders Only [facility] Oncology and Hematology - [place] [address] [facility] [place] [address] Bolivar Sánchez MD 05/18/2025 Orders Only [facility] Oncology and Hematology - [place] [address] [place] [address] Bolivar Sánchez MD 05/13/2025 Abstract [facility] Oncology and Hematology - [place] [address] [place] [address] Bolivar Sánchez MD 04/19/2025 4:30 PM CDT Telephone Check Up [facility] Oncology and Hematology [facility] [address] [place] [address] Bolivar Sánchez MD MGUS (monoclonal gammopathy of unknown significance) (Primary Dx); Chronic anemia 04/07/2025 Orders Only [facility] Oncology and Hematology - [place] [address] [place] [address] Bolivar Sánchez MD 04/05/2025 External Device Data STL ABSTRACTION Provider, Abstract 04/05/2025 External Device Data STL ABSTRACTION Provider, Abstract 04/05/2025 External Device Data STL ABSTRACTION Provider, Abstract 04/05/2025 Abstract [facility] Oncology and Hematology - [place] [address] [place] [address] Bolivar Sánchez MD 04/01/2025 Orders Only [facility] Oncology and Hematology - [place] [address] [place] [address] Bolivar Sánchez MD 03/30/2025 10:30 AM CDT Office Visit [facility] Oncology and Hematology - [place] [address] [place] [address] Migdalia Garvin MD Chronic anemia (Primary Dx) 03/30/2025 Orders Only [facility] Oncology and Hematology - [place] [address] [place] [address] Bolivar Sánchez MD from Last 3 Months [...] Comments Blood Pressure 121/73 06/03/2025 10:33 AM COURTROOM CLERK Pulse 88 06/03/2025 10:33 AM COURTROOM CLERK Temperature 36.6 C (97.8 F) 06/03/2025 10:33 AM COURTROOM CLERK Respiratory Rate 15 06/03/2025 10:3 3 AM COURTROOM CLERK Oxygen Saturation 95% 06/03/2025 10: 33 AM COURTROOM CLERK Inhaled Oxygen Concentration - - Weight 93.8 kg (206 lb 12.8 oz) 025 10:33 AM COURTROOM CLERK Height 182.9 cm (6') 03/30/2025 10:19 AM CDT Body Mass Index 28.05 03/30/2025 10:19 AM CDT Plan of Treatment Upcoming Encounters Date Type Department Care Team (Late st Contact Info) Description 06/28/2025 11:30 AM COURTROOM CLERK Office Visit [facility] Oncology and Hematology [facility] [address] [facility] [address] [place] [address] Bolivar Sánchez MD [address] [facility] [address] [place] [address] Health Maintenance Due Date Last Done Comments Pre-Diabetes and Diabetes Screening 1955 COLORECTAL SCREENING 10/22/2000 Colorectal Cancer Screening 10/22/2000 FIT-DNA Q 3 years 10/22/2000 FIT/FOBT Q 1 year 10/22/2000 Flex Sig/CT Colonography Q 5 years 10/22/2000 [place]) Preventative Visit/Annual Wellness Visit 07/28/2024 INFLUENZA VACCINE (#1) 2025 4, 04/01/2023, 05/16/2020, Additional history exists COVID-19 Vaccine (2024-2 6 season) 2025 04/29/2023, 06/05/2022, 05/24/2021, Additional history exists RSV VACCINE (60+ or ) (1 - 1-dose 75+ series) 10/22/2030 DTAP/TDAP/TD VACCINES (3 - T d or Tdap) 05/05/2034 05/05/2024, 08/02/2012 PNEUMOCOCCAL VACCINE 50+ YEARS Completed 06/05/2022 ZOSTER VACCINE Completed 08/10/2022, 1103/2022, 08/08/2021, Additional history exists Procedures Procedure Name Priority Date/Time Associated Diagnosis Comments COMPREHENSIVE METABOLIC PANEL Routine 05/18/2025 4:17 PM CDT PROTEIN ELECTROPHORESIS, CSF Routine 05/18/2025 3:45 PM CDT CBC WITH AUTODIFFERENTIAL Routine 2024 12:57 PM CDT XR BONE SURVEY COMPLETE Routine 05/18/20 11:09 AM CDT IMMUNOGLOBULINS IGG IGA IGM Routine 04/28 7:53 AM CDT IRON, TIBC, AND PERCENT SATURATION Routine 03/30/2025 3:50 PM CDT PROTEIN ELECTROPHORESIS, CSF Routine 03/30/2025 12:20 PM CDT HANNA PANEL Routine 03/30/2025 10:35 AM CDT TESTOSTERONE FREE AND TOTAL Routine 09/2024 8:56 AM CDT from Last 3 Months Results * COMPREHENSIVE METABOLIC PANEL (05/18/2025 4:17 PM CDT) Blood us Bolivar Sánchez MD CHEMISTRY ORDERABLES Final Resu lt * PROTEIN ELECTROPHORESIS, CSF (05/18/2025 3:45 PM CDT) Only the most recent of2 resultswithin the time period is included. Cerebrospinal fluid CEREBROSPINAL FLUID / Unknown us Bolivar Sánchez MD BODY FLUIDS AND STOOLS Final Re sult * CBC WITH AUTODIFFERENTIAL (05/18/2025 12:57 PM CDT) Blood us Bolivar Sánchez MD HEMATOLOGY ORDERABLES Final Res ult * XR BONE SURVEY COMPLETE (05/18/2025 11:09 AM CDT) Anatomical Region Laterality Modality Other Result [facility] Bolivar Sánchez MD DIAGNOSTIC IMAGING ORDERABLES F inal Result * IMMUNOGLOBULINS IGG IGA IGM (05/18/2025 7:53 AM CDT) Blood Result [facility] Bolivar Sánchez MD CHEMISTRY ORDERABLES Final Resu lt * IRON, TIBC, AND PERCENT SATURATION (03/30/2025 3:50 PM CDT) Blood Result [facility] Bolivar Sánchez MD CHEMISTRY ORDERABLES Final Resu lt * HANNA PANEL (03/30/2025 10:35 AM CDT) Blood Result [facility] Bolivar Sánchez MD CHEMISTRY ORDERABLES Final Resu lt * TESTOSTERONE FREE AND TOTAL (03/30/2025 8:56 AM CDT) Blood Result [facility] Bolivar Sánchez MD CHEMISTRY ORDERABLES Final Resu lt from Last 3 Months Insurance FOR LIFE Care Teams Director Communications Relationship Specialty Start Date End Date Dung Duggan MD [address] [place] [address] PCP - General Family Practice 03/30/25
--- OUTSIDE RECORDS SUMMARY | 2025-06-03 12:11 | XMS_ITS | Clinical Summary ---
Author Organization [facility] Address [address] [place] [address] Care Team Providers Care Sand Screener Operator Name Role Phone Dung Duggan MD Primary Care Provider [phone] Jeannine Oliveira MD Unavailable [phone] Allergies No known active allergies Medications rosuvastatin (CRESTOR) 5 MG tablet 08/03/2024 Active Iron, Ferrous Sulfate, 325 (65 Fe) MG Tab 06/10/2024 Acti ve IBU 600 MG tablet 09/20/2024 Active omeprazole (PRILOSEC) 40 MG capsule Take 1 capsule (40 mg total) by mouth. 01/07/2024 Active Apoaequorin (PREVAGEN EXTRA STRENGTH) 20 MG Cap Take 1 capsule by mouth daily. Active tadalafil (CIALIS) 5 MG tablet Take 1 tablet (5 mg total) by mouth. 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 Contact dermatitis due to plant 05/23/2025 Erectile dysfunction 05/23/2025 Hyperlipidemia 05/23/2025 Increased glucose level 05/23/2025 Increasing prostate specific antigen level 05/23 Left hip pain 05/23/2025 Left knee pain 05/23/2025 Onychomycosis 05/23/2025 Unintentional weight loss 05/23/2025 Pain in right forearm 05/23/2025 Chronic anemia 03/30/2025 Benign prostatic hyperplasia with urinary obstru ction [...] Problem Noted Date Diagnosed Date Resolved Date Colon cancer screening 05/23/202505/30 Encounter for other preprocedural examination 11/09/1911/15/2024 Encounters Date Type Department Care Team Description 05/23/2025 9:30 AM CDT Office Visit [facility] [address] [address] Beto Wright MD [place], Beverly Holden, BUNCH MAKER HAND Follow Up; Syncope 05/23/2025 Travel from Last 3 Months Immunizations Immunization Administration Dates Next Due Arexvy Respiratory Syncytial Virus (RSV, adjuvanted) 0.5 mL, PF 04/01/2023 Attenuvax Sc 06/11/2020 Flucelvax 6 Months+ (Prefill ed Syringe) 05/16/2020 Fluzone High Dose (IIV, triv alent, 0.5mL) 03/30/2024 H1N1 Injectable 2009 Influenza 08/20/2009 Hepatitis A (Havrix [address]) 06/30/1999,1997 Hepatitis B (Generic: Adult) 07/02/2014,01/14/20 14,12/11/2013 Influenza (Generic) 04/21/2022,,05/01/2019,04/21,06/12/2013,05/17/2012,04/13/2011 ,05/12/2010,08/20/2009,05/14/2009,04/28,05/20/2007,07/11/2006, 5,05/28/2003,05/29/2002,05/30/2001,,07/01/1998 Influenza Adult (Generic) 05/16/2020,05/21/2014 [employer] ([employer]) COVID-19 AD26 VACCINE 0.5 ML IM SUSP 09/29/2020 MMR (MMRII) 09/26/2002 Measles 06/11/2020 Meningococcal (Menomune) 12/15/1999 PFIZER COVID-19 (12+) MRNA, LNP-S, PF, RONAL-SUCROSE, 30 MCG/0.3 ML (COMIRNATY) 04/29/2023 PFIZER COVID-19 (HOLT CAP), MRNA, LNP-S, PF, 30 MCG/0.3 ML RONAL-SUCROSE, IM 05/24/2021 PFIZER COVID-19 (ORIGINAL FO RMULATION, PURPLE CAP) mRNA, LNP-S, PF, 30 MCG/0.3 ML DOSE 05/24/2021 PFIZER COVID-19 BIVALENT (12 +) mRNA, LNP-S, PF, 30 MCG/0.3 ML DOSE 06/05/2022 Pneumococcal (Prevnar 20) 06/05/2022 Polio Opv (Generic) 08/28/1989 Shingrix 08/10/2022, 2,08/08/2021,05/11 Td (TDVAX) 09/26/2002,02/22/1993 Tdap (Adacel) 05/05/2024,08/02/2012 Tdap (Generic) 08/02/2012 Typhoid 10/01/2003 Typhoid (Typhim ) 10/01/2003,10/03/2001,1999 Typhoid Vaccine, Akd 08/28/1996 Typhoid Vi Polysaccharide [...] Answered Alcohol Use Standard Drinks/Week Comments Yes 1.7 (1 standard drink = 0.6 oz p ure alcohol) AUDIT-C Answer Date Recorded Q1: How [...] PM CDT Legal Sex Male 12:44 PM BILLBOARD INSTALLER Gender Identity Male 10/11/2020 3:24 PM CDT Sexual Orientation Straight 10/11/2020 3: 24 PM CDT Last Filed Vital Signs Vital Sign Reading Time Taken Comments Blood Pressure 104/58 05/23/2025 9:42 AM CDT Pulse 94 05/23/2025 9:42 AM CDT Temperature 36.6 C (97.8 F) 09/23/2024 9:15 AM BILLBOARD INSTALLER Respiratory Rate 12 09/23/2024 9:15 AM BILLBOARD INSTALLER Oxygen Saturation 96% 05/23/2025 9:42 AM CDT Inhaled Oxygen Concentration - - Weight 95.3 kg (210 lb) 05/23/2025 9:42 AM CDT Height 181.6 cm (5' 11.5) 05/23/2025 9:42 AM CD T Body Mass Index 28.88 05/23/2025 9:42 AM CDT Plan of Treatment Upcoming Encounters Date Type Department Care Team (Late st Contact Info) Description 05/25/2026 9:30 AM CDT Office Visit [facility] [address] [address] Jeannine Oliveira MD [address] [place] [address] Health Maintenance Due Date Last Done Comments ASCVD LDL 1955 Colorectal Cancer Screening Colonoscopy (10 Years) 1955 Hepatitis C 10/22/1973 Annual Medicare Wellness Visit 10/22/2020 COVID-19 Vaccine ( season) 2025 04/29/2023, 06/05/2022, 05/24/2021, Additional history exists Influenza Adult (#1) 2025 03/30/2024, 04/21/2022, 03/28/2022, Additional history exists DTaP, Tdap and Td Vaccines (4 - Td or Tdap) 05/05/2034 05/05/2024, 08/02/2012, 08/02/2012, Additional history exists Hepatitis A Vaccines Aged Out 06/30/1999, 02/11/19 98 No longer eligible based on patient's age to complete this topic Meningococcal Vaccine Aged Out 12/15/1999 No sarbjit thor eligible based on patient's age to complete this topic Pneumococcal Vaccine: 50+ Years Completed 06/05/2022 Zoster Vaccines Completed 08/10/2022, 03/2022, 08/08/2021, Additional history exists RSV Immunization or 60+ Years Completed 04/01/2023 Meningococcal B Vaccine Aged Out No l onger eligible based on patient's age to complete this topic RSV Immunizations Under 20 Months Aged Out No longer eligible based on patient's age to complete this topic Insurance [employer] U[employer] MEDICARE Care Teams Sand Screener Operator Relationship Specialty Start Date End Date Dung Duggan MD [address] [address] PCP - General FAMILY PRACTICE 12/02/24 Jeannine Oliveira MD [address] [place] [address] EP Solidworks Designer Electrophysiology 05/23/25
--- OUTSIDE RECORDS SUMMARY | 2025-06-03 12:11 | XMS_ITS | Clinical Summary ---
Author Organization [facility] Address [address] [place] [address] Care Team Providers Care National Stormwater Leader Name Role Phone Dung Duggan MD Primary Care Provider [phone] Source Comments [facility],non-owned Affiliates and Associated Physician Practices is amultiple site organization consisting of ambulatory clinics and hospital sitesin [place], [place], [place] and [place]. This disclosure is being madepursuant to the Care Everywhere program and may not contain all information available regarding this patient. Last updated 18.[facility] Allergies No known active allergies Medications * [...] non-neoplastic 04/11/2011 Ritchie angioma 04/11/2011 Scar 04/11/2011 Immunizations Immunization Administration Dates Next Due INFLUENZA [...] on file Legal Sex Male 5:13 PM FUR BLOWER Gender Identity Not on file Sexual Orientation Not on file Plan of Treatment Upcoming Encounters Date Type Department Care Team (Late st Contact Info) Description 10/04/2025 1:20 PM CDT Office Visit [facility] - Dermatology [address] [facility] [place] [address] Dianne Faye MD [address] [facility] [place] [id number] [phone] Health Maintenance Due Date Last Done Comments [...] MEDICARE AWV CALENDAR YEAR 2024 COVID-19 VACCINE (4 - 2024- season) 2025 06/05/2022, 05/24/2021, 09/29/2020 [...] MEDICARE UHC MANAGED MEDICARE ADV Care Teams National Stormwater Leader Relationship Specialty Start Date End Date Dung Duggan MD [address] [place] [address] PCP - General 04/02/11
== END 2025-06-03 11:33 | disposition home or self-care (01) ==
PROVIDERS: PCP Family Medicine; Visit Provider Internal Medicine Hematology & Oncology
DX: D47.2 Monoclonal gammopathy (principal); R59.0 Localized enlarged lymph nodes; R91.1 Solitary pulmonary nodule; N40.0 Benign prostatic hyperplasia without lower urinary tract symptoms
CPT/HCPCS: 71260; 74177; Q9967

== ENCOUNTER 2025-07-26 14:49 | Outpatient (CLI) | payer MEDICARE, OTHER, SELFPAY ==
--- OUTSIDE RECORDS SUMMARY | 2025-07-26 15:03 | XMS_ITS | Clinical Summary ---
Author Organization [facility] Adryan Prescott Address [address] [place] [address] Care Team Providers Care Property Technician Name Role Phone Dung Duggan MD Primary Care Provider [phone] Allergies No known active allergies Medications ferrous sulfate 325 mg (65 mg iron) tablet Take 325 mg by mouth daily. 4 Active omeprazole (PriLOSEC) 40 mg Capsule, Delayed Release(E.C.) Take 40 mg by mouth daily. 4 Active rosuvastatin (CRESTOR) 5 mg tablet Take 5 mg by mouth daily. 5 Active tadalafil (CIALIS) 5 mg tablet Take 5 mg by mouth. 5 Active cyanocobalamin 1,000 mcg Tablet Take 1,000 mcg by mouth daily. Active zanubrutinib (Brukinsa) 160 mg Tablet Take 1 tablet (160 mg) by mouth 2 times daily. 60 Tablet 2 06/29/2025 4:30 PM PUBLIC STENOGRAPHER 5 Active zanubrutinib (Brukinsa) 80 mg capsule Take 2 Capsules (160 mg) by mouth 2 times daily. 120 Capsule 2 5 06/28/20 25 Discontinu ed(Reorder ) Active Problems Problem Noted Date Diagnosed Date Chronic anemia 03/30/2025 Encounters Date Type Department Care Team Description 07/25/2025 Specialty Pharmacy [facility] [address] [place] [id number] Lesley Rey, PHARMACIST 07/19/2025 Specialty Pharmacy [facility] [address] [place] [address] [place] [address] Temitope Macedo, PHARMACIST 07/15/2025 Specialty Pharmacy [facility] [address] [place] [address] [place] [address] Anabella Kincaid, PHARMACIST 07/12/2025 External Device Data [facility] ABSTRACTION Provider, Abstract 06/29/2025 Specialty Pharmacy [facility] [address] [place] [address] [place] [address] Lesley Rey, PHARMACIST 06/28/2025 11:30 AM PUBLIC STENOGRAPHER Office Visit [facility] Hemat[facility] [place] [address] [place] [phone] Bolivar Sánchez MD MGUS (monoclonal gammopathy of unknown significance) (Primary Dx); Waldenstrom macroglobulinemia (CMS/HCC) 06/28/2025 - 06/28/2025 11:59 PM PUBLIC STENOGRAPHER Hospital Encounter [facility] [address] [address] Bolivar Sánchez MD Monoclonal gammopathy Discharge Disposition: Home or Self Care 06/28/2025 Specialty Pharmacy [facility] [address] [place] [address] [place] [address] Anabella Kincaid, PHARMACIST 06/28/2025 Refill [facility] [place] [address] [place] [address] Bolivar Sánchez MD 06/21/2025 Telephone [facility] [address] [address] [place] [address] Josefina Parker FNP Follow Up 06/20/2025 12:31 PM PUBLIC STENOGRAPHER Anesthesia Event [facility] Interventional Radiology [address] [address] Juve Taylor MD 06/20/2025 11:02 AM PUBLIC STENOGRAPHER - 06/20/2025 2:20 PM PUBLIC STENOGRAPHER Hospital Encounter [facility] [address] [place] [address] Bolivar Sánchez MD [address] [facility], [facility] Ir AndJuve linares MD Miller, Brittany M, AA-C Monoclonal gammopathy Discharge Disposition: Home or Self Care 06/06/2025 Orders Only [facility] - [place] [address] [place] [phone] Bolivar Sánchez MD 06/03/2025 11:00 AM PUBLIC STENOGRAPHER Office Visit [facility]ematology - [place] [address] [place] [address] Bolivar Sánchez MD MGUS (monoclonal gammopathy of unknown significance) (Primary Dx) 05/19/2025 Orders Only [facility] - [place] [address] [place] [phone] Bolivar Sánchez MD 05/18/2025 Orders Only [facility]emat[facility] - [place] [address] [place] [address] Bolivar Sánchez MD 05/13/2025 Abstract [facility] - [place] [address] [place] [address] Bolivar Sánchez MD from Last 3 Months [...] Sign Reading Time Taken Comments Blood Pressure 139/75 06/28/2025 11:13 AM PUBLIC STENOGRAPHER Pulse 80 06/28/2025 11:13 AM PUBLIC STENOGRAPHER Temperature 36.4 C (97.5 F) 06/28/2025 11:13 AM PUBLIC STENOGRAPHER Respiratory Rate 15 06/28/2025 11:13 AM PUBLIC STENOGRAPHER Oxygen Saturation 96% 06/28/2025 11:13 AM PUBLIC STENOGRAPHER Inhaled Oxygen Concentration - - Weight 94.3 kg (208 lb) 06/28/2025 11:13 AM PUBLIC STENOGRAPHER Height 182.9 cm (6') 06/20/2025 11:18 AM PUBLIC STENOGRAPHER Body Mass Index 28.21 06/20/2025 11:18 AM PUBLIC STENOGRAPHER Plan of Treatment Upcoming Encounters Date Type Department Care Team (Late st Contact Info) Description 08/02/2025 10:00 AM PUBLIC STENOGRAPHER Office Visit [facility] Oncology [facility] [address] [facility] [address] [place] [address] Bolivar Sánchez MD [address] [facility] [address] [place] [address] Health Maintenance Due Date Last Done Comments Pre-Diabetes and Diabetes Screening 1955 COLORECTAL SCREENING 10/22/2000 Colorectal Cancer Screening 10/22/2000 FIT-DNA Q 3 years 10/22/2000 FIT/FOBT Q 1 year 10/22/2000 Flex Sig/CT Colonography Q 5 years 10/22/2000 [place] ([place]) Preventative Visit/Annual Wellness Visit 07/28/2024 INFLUENZA VACCINE (#1) 2025 , 04/01/2023, 05/16/2020, Additional history exists COVID-19 Vaccine ( - 2024-2 6 season) 2025 04/29/2023, 06/05/2022, 05/24/2021, Additional history exists RSV VACCINE (60+ or ) (1 - 1-dose 75+ series) 10/22/2030 DTAP/TDAP/TD VACCINES (3 - T d or Tdap) 05/05/2034 05/05/2024, 08/02/2012 PNEUMOCOCCAL VACCINE 50+ YEARS Completed 06/05/2022 ZOSTER VACCINE Completed 08/10/2022, 03/2022, 08/08/2021, Additional history exists Procedures Procedure Name Priority Date/Time Associated Diagnosis Comments IR BIOPSY BONE MARROW Routine 06/20/2025 12:46 PM PUBLIC STENOGRAPHER Monoclonal gammopathy BONE MARROW ASPIRATION & BIOPSY Pathology 06/20/2025 12:15 PM PUBLIC STENOGRAPHER BASIC METABOLIC PANEL Stat 06/20/2025 11:29 AM PUBLIC STENOGRAPHER CBC WITH DIFFERENTIAL Stat 06/20/2025 11:[address] CHEST ABDOMEN PELVIS W CONT Routine 06/03/2025 12:28 PM PUBLIC STENOGRAPHER COMPREHENSIVE METABOLIC PANEL Routine 05/18/2025 4:17 PM CDT PROTEIN ELECTROPHORESIS, CSF Routine 05/18/2025 3:45 PM CDT CBC WITH AUTODIFFERENTIAL Routine 05/18/2025 12:57 PM CDT XR BONE SURVEY COMPLETE Routine 05/18/20 11:09 AM CDT IMMUNOGLOBULINS IGG IGA IGM Routine 05/18/2025 7:53 AM CDT from Last 3 Months Results * IR BIOPSY BONE MARROW (06/20/2025 12:46 PM PUBLIC STENOGRAPHER) Anatomical Region Laterality Modality X-Ray Angiograph y 06/20/2025 12:4 9 PM PUBLIC STENOGRAPHER Impressions 06/20/2025 1:00 PM PUBLIC STENOGRAPHER IMPRESSION: Successful diagnostic bone marrow biopsy and aspiration. PLAN/RECOMMENDATIONS: Patient was advised to follow-up with the referring physician for sampling results. Narrative 06/20/2025 1:00 PM PUBLIC STENOGRAPHER PROCEDURE/EXAM(S): 1. DIAGNOSTIC BONE MARROW BIOPSY/ASPIRATION. 2. FLUOROSCOPIC GUIDANCE. TIME/DATE: 06/20/2025 12:46 PM. DICTATION LOCATION: Location - [facility] PHYSICIANS: Marlene Lopez MD. CLINICAL INFORMATION/INDICATION: Male of 69 years age with See Diagnosis Monoclonal gammopathy presents for bone marrow biopsy/aspiration. CONSENT: The indications, procedures, benefits, and risks (including but not limited to infection and bleeding) were discussed and informed consent was obtained for the medical record per protocol. SEDATION: Provided by the anesthesia department as detailed in the medical record. TECHNIQUE/FINDINGS: Patient identification and preprocedural timeout was performed per protocol. Maximum sterile technique was utilized for all aspects of the procedure. The overlying subcutaneous tissues were infiltrated with local anesthetic and the left posterior iliac crest was accessed with the OnControl biopsy device using realtime fluoroscopic guidance. Fluoroscopic image(s) showed the biopsy trocar well positioned at the targeted site. A 2 cc bone marrow aspiration, a heparinized 2 cc bone marrow aspiration, and a 12 g core bone marrow biopsy were obtained. At the end of the procedure, the devices were removed and a sterile dressing was applied. The patient tolerated the procedure well. MEDICATIONS/DRUGS: None. FLUOROSCOPY TIME / EXPOSURE: 0.5 minutes / 1 mGy (Ka,r). ESTIMATED BLOOD LOSS: < 5 cc. COMPLICATIONS: None. Procedure Note Marlene Lopez MD - 06/20/2025 PROCEDURE/EXAM(S): 1. DIAGNOSTIC BONE MARROW BIOPSY/ASPIRATION. 2. FLUOROSCOPIC GUIDANCE. TIME/DATE: 06/20/2025 12:46 PM. DICTATION LOCATION: Location 1 - [facility] PHYSICIANS: Marlene Lopez MD. CLINICAL INFORMATION/INDICATION: Male of 69 years age with See Diagnosis Monoclonal gammopathy presents for bone marrow biopsy/aspiration. CONSENT: The indications, procedures, benefits, and risks (including but not limited to infection and bleeding) were discussed and informed consent was obtained for the medical record per protocol. SEDATION: Provided by the anesthesia department as detailed in the medical record. TECHNIQUE/FINDINGS: Patient identification and preprocedural timeout was performed per protocol. Maximum sterile technique was utilized for all aspects of the procedure. The overlying subcutaneous tissues were infiltrated with local anesthetic and the left posterior iliac crest was accessed with the OnControl biopsy device using realtime fluoroscopic guidance. Fluoroscopic image(s) showed the biopsy trocar well positioned at the targeted site. A 2 cc bone marrow aspiration, a heparinized 2 cc bone marrow aspiration, and a 12 g core bone marrow biopsy were obtained. At the end of the procedure, the devices were removed and a sterile dressing was applied. The patient tolerated the procedure well. MEDICATIONS/DRUGS: None. FLUOROSCOPY TIME / EXPOSURE: 0.5 minutes / 1 mGy (Ka,r). ESTIMATED BLOOD LOSS: < 5 cc. COMPLICATIONS: None. IMPRESSION: Successful diagnostic bone marrow biopsy and aspiration. PLAN/RECOMMENDATIONS: Patient was advised to follow-up with the referring physician for sampling results. us Bolivar Sánchez MD IR ORDERABLES Final Result * BONE MARROW ASPIRATION & BIOPSY (06/20/2025 12:15 PM PUBLIC STENOGRAPHER) CASE REPORT Bone Marrow Patholog y Report Case: [id number] Authorizing Provider: Marlene Lopez MD Collected: 06/20/2025 12:15 PM Ordering Location: [facility] Received: 06/20/2025 02:48 PM [facility] Pathologist: Bell Tamayo MD Specimens: A) - Bone marrow, Core, left iliac B) - Bone marrow, Clot, left iliac C) - Bone marrow, Aspirate smears D) - Peripheral Blood Smear E) - Bone marrow, Flow cytometry 9:21 AM [facility] ADDENDUM 1 This addendum is issued to report the results of MYD 88 mutation and [employer] Oncology Chromosome Analysis (see hyperlink below for scan of outside report). MYD88 Mutation(s) : Detected, confirming the diagnosis of lymphoplasmacytic lymphoma. Karyotype: 46,XY[20] ; NORMAL MALE KARYOTYPE 9:21 AM [facility] Addendum electronically signed by Bell Tamayo MD on 06/29/2025 at 0921 PUBLIC STENOGRAPHER FINAL DIAGNOSIS Bone marrow, left iliac crest, aspirate, clot section and core biopsy: - Hypercellular marrow (approximate cellularity of 60%) involved by B-cell lymphoma with plasmacytic differentiation, approximately 40% of marrow cellularity, see microscopic. - Result of MYD 88 mutation in addendum. Bone marrow, flow cytometric immunophenotypic analysis: - B-cell lymphoma with plasmacytic differentiation, surface and cytoplasmic kappa light chain restricted. 9:21 AM [facility] at 1428 PUBLIC STENOGRAPHER GROSS DESCRIPTION The specimens are received in separate containers, all labeled with the patient's name Danielito Saravia and the first specimen is additionally labeled left iliac crest and consists of a single long core of bone measuring 1.6 x 0.2 x 0.2 cm, entirely submitted in A1 following decalcifications. The clot section is prepared from the bone marrow aspirate and is submitted in B1. Additional bone marrow aspirate tubes are submitted for flow cytometry and cytogenetic analysis. 9:21 AM [facility] MICROSCOPIC DESCRIPTION BONE MARROW CLOT SECTION: Review of the bone marrow clot section shows cellular spicules with lymphocytic infiltrate with admixed plasma cells. CD20 stains abundant B cells with admixed CD138 positive plasma cells. CD3 highlights a small subpopulation of lymphocytes as T cells. Iron stain shows 2/4+ storage iron. BONE MARROW CORE BIOPSY: The decalcified sections of the bone marrow core biopsy show a long core of hypercellular marrow with an approximate cellularity of 60%. There is diffuse lymphocytic infiltrate, composed of mainly small lymphocytes admixed with plasma cells. To delineate the nature of the lymphoid infiltrate, immunohistochemical stains are performed. CD20 diffusely stains the lymphoid infiltrate, comprising approximately 40% of marrow cellularity. The lymphoid infiltrate is additionally positive for BCL2, which is negative for CD10 and cyclin D1. CD138 stains admixed plasma cells in the lymphoid infiltrate, plasma cells are mainly negative for CD56. CD3 stains small and mature T cells surrounding lymphoma cells. Overall the histology in conjunction with immunohistochemical stains and flow cytometric data is that of a low-grade B-cell lymphoma with plasmacytic differentiation, suggestive of lymphoplasmacytic lymphoma. The MYD 88 mutation is ordered to confirm this diagnosis and result will be reported in an addendum. 5 9:21 AM [facility] OPERATIVE PROCEDURE Left iliac bone marrow biopsy 5 9:21 AM [facility] CLINICAL INFORMATION IgM MGUS 5 9:21 AM [facility] BM SMEARS AND/OR BIOPSIES BONE MARROW ASPIRATE SMEARS: Review of the bone marrow aspirate smears reveals cellular spicules for examination. Based on a 300 cell differential, 1% is blast, 53% are more differentiated myeloid progenitors, 42% are small lymphocytes, 3% are plasma cells and 11% are erythroid precursors. Myeloid and erythroid maturation shows no significant dyspoiesis. Blasts are not increased in number and no Stone rods are noted. Lymphocytes are mainly small and mature with occasional plasmacytoid forms and admixed plasma cells. Iron stain shows 1/4+ storage iron. Ring sideroblasts are absent. FLOW CYTOMETRIC IMMUNOPHENOTYPIC ANALYSIS: Flow cytometric analysis of bone marrow reveals a viability of 97% with 10% of cells are detected in the lymphocyte region, 2% in dim CD45/blast region and 82% in the granulocyte region. In the lymphocyte and plasma cell regions, there are monotypic populations of B lymphocytes and plasma cells with expression of CD19, CD20, CD38, CD138 with surface and cytoplasmic kappa light chain restriction and no expression of CD5, CD10 or CD56. The remainder of cells in the lymphocyte region is 49% T cells with dash T-cell antigen expression and CD4/CD8 ratio of 1. Within dim CD45/blast region, 9% of cells express CD34 and 23% express CD117. The total percentage of myeloblasts detected by flow cytometry is less than 1% of total events. Based on the flow cytometric data which identify monotypic populations of B lymphocytes and plasma cells (surface and cytoplasmic kappa light chain restricted), there is diagnostic evidence of involvement of the flow cytometry specimen of bone marrow by a B-cell lymphoma with plasmacytic differentiation. The MYD 88 mutation is ordered to confirm the diagnosis of lymphoplasmacytic lymphoma and results will be reported in an addendum. The technical component of flow cytometric analysis (27 markers) is performed by [facility], [place], [place]. To view the report, click the link below. 5 9:21 AM [facility] PERIPHERAL BLOOD SMEAR Review of the peripheral blood smear confirms the CBC data. Plasmacytoid lymphocytes are noted. 5 9:21 AM [facility] COMMENT Special stain, immunohistochemical, and/or in situ hybridization results are interpreted with controls that demonstrate appropriate staining reactions. Note on use of immunohistochemistry reagents and in situ hybridization probes: These tests were developed and their performance characteristics determined by [facility], Department of Laboratory Medicine. It has not been cleared or approved by the U.S. Food and Drug Administration. The FDA has determined that such clearance or approval is not necessary. The test is used for clinical purposes. It should not be regarded as investigational or for research. This laboratory is certified to perform high complexity testing. Frozen section/operating room consultation, gross examination and dissection, and case sign out may have been performed in part or completely in the following laboratories: [facility], CLIA #[id number] [address] [place] [address] [facility], [place] #[id number] [address] [place] [address] [facility], CLIA #[id number] [facility] [place] [address] This report was created with the [employer] voice-activated dictation system. Inherent to this system is the possibility of syntax, grammar, punctuation and other errors that could impact the interpretation of the report. If there are interpretative questions about aspects of this report, please contact the performing pathologist. 9:21 AM PUBLIC STENOGRAPHER [facility] Bone marrow ALL BONE MARROW / Unknown 06/20/2025 12:15 PM PUBLIC STENOGRAPHER 06/20/2025 2:48 PM PUBLIC STENOGRAPHER Comment:Left iliac bone fili ow biopsy Bone marrow specimen (specimen) ALL BONE MARROW / Unknown 06/20/2025 12:15 PM PUBLIC STENOGRAPHER 06/20/2025 2:48 PM PUBLIC STENOGRAPHER Comment:Left iliac bone fili ow biopsy Bone marrow specimen (specimen) ALL BONE MARROW / Unknown 06/20/2025 12:15 PM PUBLIC STENOGRAPHER 06/20/2025 2:48 PM PUBLIC STENOGRAPHER Comment:Left iliac bone fili ow biopsy Bone marrow specimen (specimen) (Peripheral Blood Smear) 06/20/2025 12:15 PM PUBLIC STENOGRAPHER 06/20/2025 2:48 PM PUBLIC STENOGRAPHER Comment:Left iliac bone fili ow biopsy Bone marrow specimen (specimen) ALL BONE MARROW / Unknown 06/20/2025 12:15 PM PUBLIC STENOGRAPHER 06/20/2025 2:48 PM PUBLIC STENOGRAPHER Comment:Left iliac bone fili ow biopsy us Suchit A John WILKINSON PATHOLOGY/CYTOLOGY ORDERABLES Edited [id number] [address] [facility] [place] [address] * (ABNORMAL) CBC WITH DIFFERENTIAL (06/20/2025 11:29 AM PUBLIC STENOGRAPHER) WBC 7.8 4.0 - 9.8 K/uL 06/20/2025 11:43 AM PUBLIC STENOGRAPHER [facility] RBC 4.14(L) 4.50 - 5.40 M/uL 06/20/2025 11:43 AM PUBLIC STENOGRAPHER [facility] HEMOGLOBIN 11.2(L) 13.6 - 16.5 g/dL 06/20/2025 11:43 AM PUBLIC STENOGRAPHER [facility] HEMATOCRIT 36.0(L) 40.0 - 48.0 % 06/20/2025 11:43 AM PUBLIC STENOGRAPHER [facility] MCV 87.0 82.0 - 99.0 fL 06/20/2025 11:43 AM PUBLIC STENOGRAPHER [facility] MCH 27.1(L) 27.2 - 32.6 pg 06/20/2025 11:43 AM PUBLIC STENOGRAPHER [facility] MCHC 31.1(L) 31.5 - 35.5 g/dL 06/20/2025 11:43 AM PUBLIC STENOGRAPHER [facility] RDW 16.3(H) 11.5 - 14.5 % 06/20/2025 11:43 AM PUBLIC STENOGRAPHER [facility] RDW-STDEV 52.3(H) 37.1 - 48.7 fL 06/20/2025 11:43 AM [facility] PLATELETS 330 140 - 350 K/uL 06/20/2025 11:43 AM PUBLIC STENOGRAPHER [facility] MPV 9.0(L) 9.3 - 12.4 fL 06/20/2025 11:43 AM PUBLIC STENOGRAPHER [facility] NEUTROPHILS 63 % 06/20/2025 11:43 AM PUBLIC STENOGRAPHER [facility] LYMPHOCYTES 18 % 06/20/2025 11:43 AM PUBLIC STENOGRAPHER [facility] MONOCYTES 17 % 06/20/2025 11:43 AM PUBLIC STENOGRAPHER [facility] EOSINOPHILS 1 % 06/20/2025 11:43 AM PUBLIC STENOGRAPHER [facility] BASOPHILS 1 % 06/20/2025 11:43 AM PUBLIC STENOGRAPHER [facility] IMMATURE GRANULOCYTES 0 % 06/20/2025 11:43 AM PUBLIC STENOGRAPHER [employer] [facility] NEUTROPHIL ABSOLUTE 4.95 1.90 - 7.00 K/uL 06/20/2025 11:43 AM [facility] LYMPHOCYTE ABSOLUTE 1.37 0.70 - 4.50 K/uL 06/20/2025 11:43 AM [facility] [employer] [facility] MONOCYTE ABSOLUTE 1.35(H) 0.10 - 1.30 K/uL 06/20/2025 11:43 AM [facility] EOSINOPHIL ABSOLUTE 0.09 0.00 - 0.70 K/uL 06/20/2025 11:43 AM [facility] BASOPHILS ABSOLUTE 0.05 0.00 - 0.20 K/uL 06/20/2025 11:43 AM [facility] [employer] [facility] IMMATURE GRANULOCYTES ABSOLUTE 0.03 0.00 - 0.03 K/uL 06/20/2025 11:43 AM [facility] Blood Venipuncture / Unknown 06/20/2025 11:29 AM PUBLIC STENOGRAPHER 06/20/2025 11:32 AM PUBLIC STENOGRAPHER us Aj Jo MD HEMATOLOGY ORDERABLES Final R esult [facility]# [id number] [address] [place] [address] * (ABNORMAL) BASIC METABOLIC PANEL (06/20/2025 11:29 AM PUBLIC STENOGRAPHER) SODIUM 145 136 - 145 mmol/L 06/20/2025 12:07 PM [facility] [employer] [facility] [place] POTASSIUM 4.0 3.5 - 5.0 mmol/L 06/20/2025 12:07 PM [facility] [employer] [facility] CHLORIDE 108(H) 98 - 107 mmol/L 06/20/2025 12:07 PM [facility] [employer] [facility] [place] CO2 27 22 - 29 mmol/L 06/20/2025 12:07 PM [facility] [employer] [facility] [place] CALCIUM 9.3 8.6 - 10.2 mg/dL 06/20/2025 12:07 PM [facility] BUN 19 8 - 23 mg/dL 06/20/2025 12:07 PM [facility] CREATININE 0.99 0.67 - 1.17 mg/dL 06/20/2025 12:07 PM [facility] GLUCOSE 97 74 - 99 mg/dL 06/20/2025 12:07 PM [facility] GFR >60 >=60 mL/min/1.7 3 sq meter 06/20/2025 12:07 PM [facility] Comment:eGFR calculated with 2020 CKD-EPI equation. Vegetarian diet, extremely high or low muscle mass, and may affect results. Cystatin C with Glomerular Filtration Rate is a suitable alternative for these patients. ANION GAP 10 8 - 16 mmol/L 06/20/2025 12:07 PM [facility] Blood Venipuncture / Unknown 06/20/2025 11:29 AM PUBLIC STENOGRAPHER 06/20/2025 11:32 AM PUBLIC STENOGRAPHER Aj Jo MD CHEMISTRY ORDERABLES Final Re [facility] Organization Address City/State/ZIP Co de Phone Number [facility]# [id number] [address] [place] [address] * CT CHEST ABDOMEN PELVIS W CONT (06/03/2025 12:28 PM PUBLIC STENOGRAPHER) Anatomical Region Laterality Modality Chest Computed Tomogra phy Bolivar Sánchez MD CT ORDERABLES Final Result * COMPREHENSIVE METABOLIC PANEL (05/18/2025 4:17 PM CDT) Blood us Bolivar Sánchez MD CHEMISTRY ORDERABLES Final Resu lt * PROTEIN ELECTROPHORESIS, CSF (05/18/2025 3:45 PM CDT) Cerebrospinal fluid CEREBROSPINAL FLUID / Unknown us Bolivar Sánchez MD BODY FLUIDS AND STOOLS Final Re sult * CBC WITH AUTODIFFERENTIAL (05/18/2025 12:57 PM CDT) Blood us Bolivar Sánchez MD HEMATOLOGY ORDERABLES Final Res ult * XR BONE SURVEY COMPLETE (05/18/2025 11:09 AM CDT) Anatomical Region Laterality Modality Other us Bolivar Sánchez MD DIAGNOSTIC IMAGING ORDERABLES F inal Result * IMMUNOGLOBULINS IGG IGA IGM (05/18/2025 7:53 AM CDT) Blood us Bolivar Sánchez MD CHEMISTRY ORDERABLES Final Resu lt from Last 3 Months Insurance [email or web address] Care Teams Property Technician Relationship Specialty Start Date End Date Dung Duggan MD [address] [place] [address] PCP - General Family Practice 03/30/25
--- OUTSIDE RECORDS SUMMARY | 2025-07-26 15:03 | XMS_ITS ---
Author Organization [facility] Address [address] [place] [address] Care Team Providers Care Drop Wirer Name Role Phone Dung Duggan MD Primary Care Provider [phone] Myeloproliferative neoplasm Status:Enrolled (Active) Start date:06/28/2025 Enrollment date:06/28/2025 Current support & services provided:Clinical Management, Refill Management, Benefits and PA Management Linked medications:zanubrutinib (Active) Continued Care and Services Coordination
--- OUTSIDE RECORDS SUMMARY | 2025-07-26 15:03 | XMS_ITS | Encounter Summary ---
Author Organization [facility] Address [address] [place] [address] Care Team Providers Care Striper Machine Name Role Phone Dung Duggan MD Primary Care Provider [phone] Encounter Details Date Type Department Care Team (Late Contact Info) Description 07/25/2025 Specialty Pharmacy [facility] [address] [place] [id number] Lesley Rey, PHARMACIST Social History Tobacco Use Types Packs/Day Years Used Date Smoking Tobacco: Never Smokeless Tobacco: Never Alcohol Use Standard Drinks/Week Comments Yes 0 (1 standard drink = 0.6 oz pur e alcohol) Occasionally Sex and Gender Information Value Date Recorded Sex Assigned at Not on file Legal Sex Male 10:13 PM CDT Gender Identity Not on file Sexual Orientation Not on file documented as of this encounter Plan of Treatment Upcoming Encounters Date Type Department Care Team (Late Contact Info) Description 08/02/2025 10:00 AM DYNAMICS AX SOLUTION ARCHITECT Office Visit [facility] [place] [address] [place] [address] Bolivar Sánchez MD [address] [place] [address] documented as of this encounter Visit Diagnoses Not on filedocumented in this encounter Care Teams Striper Machine Relationship Specialty Start Date End Date Dung Duggan MD [address] [place] [address] PCP - General Family Practice 03/30/25 documented as of this encounter
--- OUTSIDE RECORDS SUMMARY | 2025-07-26 15:03 | XMS_ITS | Clinical Summary ---
Author Organization [facility] Address [address] [place] [address] Care Team Providers Care Freelance Art Director Name Role Phone Dung Duggan MD Primary Care Provider [phone] Jeannine Oliveira MD Unavailable [phone] Allergies No known active allergies Medications rosuvastatin [...] Description 05/23/2025 9:30 AM CDT Office Visit [facility] [address] [address] Beto Wright MD Pollmann, Beverly Holden, AIRCRAFT LANDING GEAR INSPECTOR Follow Up; Syncope 05/23/2025 Travel from Last [...] 04/21/2022,,05/01/2019,04/21,06/12/2013,05/17/2012,04/13/2011 ,05/12/2010,08/20/2009,05/14/2009,04/28,05/20/2007,07/11/2006, 5,05/28/2003,05/29/2002,05/30/2001,,07/01/1998 Influenza Adult (Generic) 05/16/2020,05/21/2014 [employer] COVID-19 AD26 VACCINE 0.5 [...] PM CDT Legal Sex Male 12:44 PM HUNTING AND FISHING GUIDE Gender Identity Male 10/11/2020 3:24 PM CDT Sexual Orientation Straight 10/11/2020 3: 24 PM CDT Last Filed Vital Signs Vital Sign Reading Time Taken Comments Blood Pressure 104/58 05/23/2025 9:42 AM CDT Pulse 94 05/23/2025 9:42 AM CDT Temperature 36.6 C (97.8 F) 09/23/2024 9:15 AM HUNTING AND FISHING GUIDE Respiratory Rate 12 09/23/2024 9:15 AM HUNTING AND FISHING GUIDE Oxygen Saturation 96% 05/23/2025 9:42 AM CDT Inhaled Oxygen Concentration - - Weight 95.3 kg (210 lb) 05/23/2025 9:42 AM CDT Height 181.6 cm (5' 11.5) 05/23/2025 9:42 AM CD T Body Mass Index 28.88 05/23/2025 9:42 AM CDT Plan of Treatment Upcoming Encounters Date Type Department Care Team (Late st Contact Info) Description 05/25/2026 9:30 AM CDT Office Visit [facility] [address] [address] Jeannine Oliveira MD [address] [place] [address] Health Maintenance Due Date Last Done Comments [...] topic Insurance [employer] MEDICARE Care Teams Freelance Art Director Relationship Specialty Start Date End Date Dung Duggan MD [address] [address] PCP - General FAMILY PRACTICE 12/02/24 Jeannine Oliveira MD [address] [place] [address] EP Soa Architect Electrophysiology 05/23/25
[2025-07-26 15:06] LABS: Hematocrit 39.4 % (42.0-52.0); Hemoglobin 12.4 g/dL (14.0-18.0); Immature Granulocyte Percent A 0.3 % (0-0.5); Lymphocytes Absolute Auto 1.81 K/mm3 (0.9-3.2); Mean Corpuscular HGB Conc 31.5 g/dl (32-36); Mean Corpuscular Hemoglobin 28.8 pg (26-34); Mean Corpuscular Volume 91.4 fl (80-100); Nucleated Red Blood Cells Absolute Auto 0.000 K/mm3 (0.0-0.012); Nucleated Red Blood Cells Perc 0.0 % (0.0-0.2); Platelet Count Result 170 k/mm3 (150-375); Red Blood Count 4.31 M/mm3 (4.6-6.20); White Blood Count 11.4 K/mm3 (4.5-10.0)
[2025-07-26 16:32] LABS: Alanine Aminotransferase 18 U/L (6-50); Albumin Level 4.1 g/dL (3.5-5.1); Alkaline Phosphatase 84 U/L (38-126); Anion Gap 5 mmol/L (4-12); Aspartate Amino Transferase 34 U/L (17-59); Bilirubin,Total 0.7 mg/dL (0.2-1.3); Blood Urea Nitrogen 20 mg/dL (9-20); Calcium 9.4 mg/dL (8.4-10.2); Carbon Dioxide 29 mmol/L (22-30); Chloride 105 mmol/L (98-107); Estimated Glomerular Filt Rate > 60; Glucose 92 mg/dL (65-110); Potassium 3.9 mmol/L (3.4-5.0); Sodium 139 mmol/L (137-145); Total Protein 7.6 g/dL (6.3-8.2)
[2025-07-26 16:39] LABS: Immunoglobulin G 979 mg/dL (700-1600)
[2025-07-26 16:40] LABS: Immunoglobulin A < 40 mg/dL (70-400)
[2025-07-26 17:00] LABS: Immunoglobulin M 764 mg/dL (40-230)
[2025-07-27 11:08] LABS: Albumin 3.7 g/dL (2.9-4.4); Alpha-1-Globulin 0.2 g/dL (0.0-0.4); Alpha-2-Globulin 0.7 g/dL (0.4-1.0); Gamma Globulin 1.5 g/dL (0.4-1.8)
[2025-07-27 14:08] LABS: Free Lambda Lt Chains, Serum 36.0 mg/L (5.7-26.3); Kappa/Lambda Ratio, Serum 2.28 (0.26-1.65)
== END 2025-07-26 14:50 | disposition home or self-care (01) ==
LOC: ANHLAB 14:49
PROVIDERS: PCP Family Medicine; Visit Provider Internal Medicine Hematology & Oncology
DX: C88.00 Waldenstrom macroglobulinemia not having achieved remission (principal)
CPT/HCPCS: 36415; 80053; 82784; 83521; 84155; 84165; 85025